=== PATIENT | female | born 1995 | race Two or more races ===

== ENCOUNTER → 2017-08-26 14:42 | Outpatient (CLI) | payer OTHER, MEDICAID, SELFPAY ==
[2017-08-28 09:01] LABS: HPV Reflexed? NOT INDICATED
== END ==
PROVIDERS: Visit Provider Obstetrics & Gynecology
DX: Z12.4 Encounter for screening for malignant neoplasm of cervix (principal); Z12.72 Encounter for screening for malignant neoplasm of vagina
CPT/HCPCS: 88175; G0145